=== PATIENT | female | born 1985 | race Caucasian/White ===

== ENCOUNTER 2016-12-04 18:48 | Emergency (ER) | payer MEDICAID, OTHER ==
[~2016-12-04] VITALS: Ht 154.9 cm; Wt 96.7 kg
[2016-12-04 19:25] VITALS: BP 112/65; PULSE 72; RESP 18; TEMP 98.7; O2SAT 100
[2016-12-04 19:32] VITALS: RESP 18
[2016-12-04 19:35] VITALS: BP 111/67; PULSE 79; RESP 18; O2SAT 100
[2016-12-04] MEDS ORDERED: MULT1CHW70 (19:53)
[2016-12-04 20:15] LABS: BLOOD, URINE LARGE (NEG); GLUCOSE,URINE NEG (NEG); KETONE, URINE NEG (NEG); NITRITE,URINE NEG (NEG); PH, URINE 5.5 (5.0-8.5)
[2016-12-04 20:34] LABS: URINE COLOR YELLOW (YELLW/STRAW)
[2016-12-04 20:35] LABS: MUCUS URINE MOD /lpf (OCC); SQUAMOUS EPITHELIAL CELL URINE > 8 /hpf (0-5)
[2016-12-04 20:36] LABS: BACTERIA, URINE FEW /hpf; CALCIUM OXALATE CRYSTALS,URINE MOD /hpf
[2016-12-04 20:37] LABS: WBC, URINE 0-2 /hpf (0-5)
[2016-12-04 20:38] LABS: COMMENT (UR) CULT NOT INDICATED; CULTURE IF INDICATED CULT NOT INDICATED
--- NOTE | 2016-12-04 20:57 | PD ---
HPI Chief Complaint: Acid Mixer Problem/Complaint Time Seen by Provider: 19:40 Travel History International Travel<30 days: No Contact w/Intl Traveler<30days: No Traveled to known affect area: No History of Present Illness HPI To 31 year-old woman who presents to the emergency department complaining of smelly vagina. She reports that her has been cheating on her. She had sex with him a couple days ago. Since then she feels like her vagina is malodorous. She's not noticed any discharge. She is urinating more than normal. She has some mild abdominal cramping that she thought was likely related to being due to start her period. Remote history of STDs. No other complaints. History Past Medical History Medical History: Denies Significant Hx Tetanus Vaccination: < 5 Years Influenza Vaccination: No : 3 Para: 3 Dilation and Curettage (D&C): Yes Social History Alcohol Use: Yes (occasional) Tobacco Use: Yes (1/2 PPD) Allergies-Medications (Allergen,Severity, Reaction): Coded Allergies: No Known Allergies (Verified , 12/04/16) Reported Meds & Prescriptions Reported Meds & Active Scripts Active Reported Multivitamin Adult (Multiple Vitamins W/ Minerals) 1 Chw Chw Review of Systems Except as stated in HPI: all other systems reviewed are Neg Physical Exam Narrative GENERAL: Well-appearing 31 year-old woman, no acute distress. SKIN: Focused skin assessment warm/dry. CARDIOVASCULAR: Regular rate and rhythm. No murmur appreciated. RESPIRATORY: No accessory muscle use. Clear to auscultation. Breath sounds equal bilaterally. GASTROINTESTINAL: Abdomen soft, non-tender, nondistended. Hepatic and splenic margins not palpable. MUSCULOSKELETAL: No obvious deformities. GENITOURINARY: Normal external genitalia without lesions or erythema. Vaginal vault without blood or drainage. Cervical os was closed without drainage. No cervical motion tenderness. Uterus nontender and nonenlarged. Bilateral adnexa nontender without masses. Data Data Last Documented VS Vital Signs Date Time Temp Pulse Resp B/P Pulse Ox O2 Delivery O2 Flow Rate FiO2 12/04/16 19:35 79 18 111/67 100 Room Air 12/04/16 19:25 98.7 Orders Gc And Chlamydia Pcr (12/04/16 19:51) Wet Prep Profile (12/04/16 19:51) Urinalysis - C+S If Indicated (12/04/16 19:51) Ed Urine Pregnancytest Poc (12/04/16 19:51) Labs Laboratory Tests Test 12/04/16 19:50 Urine Color YELLOW Urine Turbidity SLIGHT Urine pH 5.5 Urine Specific [place] 1.025 Urine Protein TRACE mg/dL Urine Glucose (UA) NEG mg/dL Urine Ketones NEG mg/dL Urine Occult Blood LARGE Urine Nitrite NEG Urine Bilirubin NEG Urine Leukocyte Esterase NEG Urine RBC 4-9 /hpf Urine WBC 0-2 /hpf Urine Squamous Epithelial > 8 /hpf Cells Urine Calcium Oxalate Crystals MOD /hpf Urine Bacteria FEW /hpf Urine Mucus MOD /lpf Microscopic Urinalysis Comment CULT NOT INDICATED Clue Cells (Wet Prep) NONE SEEN Vaginal Trichomonas (Wet Prep) NONE SEEN Vaginal Yeast (Wet Prep) NONE SEEN MDM Medical Decision Making Medical Screen Exam Complete: Yes Emergency Medical Condition: Yes Interpretation(s) Wet prep negative UA with trace blood Differential Diagnosis Vaginitis, cervicitis, BV, other Narrative Course Medical decision making 31 year-old woman malodorous vagina. No evidence of DVT. No evidence of STD. Recommend outpatient follow-up. Diagnosis Primary Impression: Vaginal odor Additional Instructions: Follow-up with your primary physician for any persistent symptoms. Disposition: 01 DISCHARGE HOME Condition: Stable Brad Garcia MD December 04, 2016 20:57
[2016-12-04 23:42] LABS: CHLAMYDIA PCR NOT DETECTED (NOT DETECT); NEISSERIA PCR NOT DETECTED (NOT DETECT)
== END 2016-12-04 21:04 | disposition home or self-care (01) ==
LOC: PHED 18:48
DX: N89.8 Other specified noninflammatory disorders of vagina (principal); F17.210 Nicotine dependence, cigarettes, uncomplicated
CPT/HCPCS: 81001; 84703; 87210; 87491; 87591; 99283

== ENCOUNTER 2017-11-12 19:45 | Emergency (ER) | payer MEDICAID ==
[~2017-11-12] VITALS: Ht 152.4 cm; Wt 90.1 kg
[~2017-11-12 19:45] MED LIST: MULT1CHW70
[2017-11-12 20:08] VITALS: BP 121/56; PULSE 86; RESP 18; TEMP 98.5; O2SAT 100
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
== END 2017-11-12 22:11 | disposition home or self-care (01) ==
LOC: NEPD 19:45
DX: S06.9X9A Unspecified intracranial injury with loss of consciousness of unspecified duration, initial encounter (principal); S01.01XA Laceration without foreign body of scalp, initial encounter; F41.8 Other specified anxiety disorders; F17.210 Nicotine dependence, cigarettes, uncomplicated; F12.90 Cannabis use, unspecified, uncomplicated; Y09 Assault by unspecified means; Y92.007 Garden or yard of unspecified non-institutional (private) residence as the place of occurrence of the external cause
CPT/HCPCS: 70450